=== PATIENT | female | born 1960 | race Caucasian/White ===

== ENCOUNTER 2016-02-23 06:32 | Outpatient (CLI) ==
--- NOTE | 2016-02-23 09:03 | ECHO2D ---
Date of Exam: 02/23/16 Ordering Physician: MADELINE/ABIGAIL/ANATOLIY Reason for Echo: ABNORMAL EKG, ISCHEMIA, SURGICAL CLEARANCE M-Mode Normal Adult Results LV Dimensions Normal Adult Results AoV Opening excursions >1.6 >1.6 LVEDD-base- 3.5-5.8 3.5 Ao root dimensions 2.0-3.7 3.0 LVESD-base- 3.1-4.6 L. Atrium dimensions 1.9-3.8 2.7 Post. Wall thickness 0.8-1.1 0.9 IV septum (thickness) 0.7-1.2 0.8 Post. Wall excursion 0.72-1.3 NORMAL Septal motion NORMAL Systolic motion R. Ventricular cavity 1.5-2.0 NORMAL LVEF 60% 56% Paradoxical septal wall motion NORMAL 2-D : 2-D M Mode Echocardiogram was performed using apical four chamber and left parasternal long and short axis views. Mitral, tricuspid and aortic valves appear to be normal. Contractility of the left ventricle seems to be normal, so is the cavity size. Left atrial cavity size and aortic root appear to be normal. There is no pericardial effusion. There is no thrombus noted in the left ventricular or left aortic cavity. MITRAL VALVE PROLAPSE NOTED ON LEFT PARASTERNAL LONG AXIS AND APICAL FOUR CHAMBER VIEW M-MODE: MV: MITRAL VALVE PROLAPSE, LATE SYSTOLIC AV: NORMAL TV: NORMAL PV: NORMAL CHAMBER SIZE: NORMAL WALL MOTION: NORMAL PERICARDIUM: NORMAL INTERPRETATION: 1. MITRAL VALVE PROLAPSE, LATE SYSTOLIC, MAYBE TRACE MITRAL REGURGITATION 2. NORMAL LEFT VENTRICULAR CONTRACTILITY 3. NORMAL LEFT VENTRICLE SIZE, LEFT ATRIAL SIZE MTDD
== END 2016-02-23 06:33 | disposition home or self-care (01) ==
LOC: CAR 06:32
PROVIDERS: ATTEND Internal Medicine
DX: R94.31 Abnormal electrocardiogram [ECG] [EKG] (principal); I25.10 Atherosclerotic heart disease of native coronary artery without angina pectoris; Z01.810 Encounter for preprocedural cardiovascular examination

== ENCOUNTER 2016-03-20 15:00 | Outpatient (RCR) ==
--- NOTE | 2016-02-28 13:08 | RS.OPPTEV2 ---
Date of Note: 02/25/16 Visit #: 1 Date of Evaluation: 02/25/16 Payer Source: Insurance Date of Onset/Injury/Change in Status: 02/24/16 (right shoulder manipulation ) Treatment Diagnosis: Right shoulder pain, stiffness, Adhesive capsulitis, s/p manipulation History of Condition/Mechanism of Injury:: Patient reports right shoulder pain and progressive limited ROM for over a year. States she had MRI and Xray that reveal not injury in the joint. 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 Prior Level of Function.....Patient was independent with: ADL's, Self Care, Work /Vocation, Caregiving, Ambulation/Mobility, Community Integration/Access Functional Limitations: Sleep, Self Care, ADL's, Reaching, Pushing, Pulling, Lifting Current Subjective/complaints:: Patient reports right shoulder pain and soreness. She took a pain pill this morning. Reports nerve block wore off last night. She did ice the right shoulder last night. Reports difficulty getting dressed and styling her hair. Also reports sleeping has been difficult , she is unable to sleep on either side due to discomfort in the right shoulder. She hopes to return to work on Sunday. Treatment Side (optional): Right Medical History Medical History: Unremarkable Smoking Status: Former smoker Diagnostic Testing/Imaging:: Xrays and MRI were negative Hx Home Medications: pain medication (patient not sure of name), lexapro, synthroid Patient's Goals: Her goal is to regain functional AROM of the right UE. Pain Assessment - Pain Description Pain Location: right shoulder, anterior and posterior aspect of joint Pain Description: soreness, aching Current Pain Intensity: 5/10 Worst Pain Intensity: 8/10 Functional Outcome Measure UE Functional Index: 52 (52/80=35% impairment) - G Codes & Severity Modifier G Codes & Modifier: NA Source of G Code score: NA Observation - Observation Posture: Forward Head, Rounded Shoulders, Scapula Asymmetry (right scapula elevated) Handedness: Ambidextrous (writes left handed, but everything else right handed) Shoulder ROM: Left WFL's Shoulder Muscle Strength: Left WFL's - Right Shoulder ROM Comments: Passive-AAROM right shoulder: flexion 100 degrees, abduction 90 degrees, ER 55-60 degrees, IR 50 degrees. Full elbow, wrist, and hand AROM. - Right Shoulder Strength Right Shoulder Flexion: 4 Good Right Shoulder Extension: 4 Good Right Shoulder Abduction: 4 Good Right Shoulder Adduction: 4 Good Right Shoulder External Rotation: 4 Good Right Shoulder Internal Rotation: 4 Good Palpation Comments:: Patient with general soreness througout the anterior and posterior aspect of the shoulder joint. Sensation - Sensation Right Upper Extremity: Intact/Normal Left Upper Extremity: Intact/Normal - Heat/Cryotherapy Treatment: Cryotherapy (x 10 mins following ROM) Interventions - Exercise/Activities/Manual Therapy Exercises/Activities: Patient received PROM in all directions following evaluation. She demonstrated muscle guarding with initial ROM, but gradually relaxed and tolerated more ROM. Patient instructed in HEP of pendulum, P-AAROM into flexion and abduction, scapular retraction, and passive stretching into ER. Total minutes of Exercise: X 16 mins Manual Therapy: NA HOME EXERCISE PROGRAM: pendulum, P-AAROM into flexion and abduction, scapular retraction, and passive stretching into ER. - Charges Total Direct Minutes: 45 mins Total Treatment Time: 45 mins Procedures billed for this date of service:: TYRA,Ex, CP Assessment Assessment: Patient presents 1 day s/p manipulation of the right shoulder. She demonstrates limited passive and Active ROM. Demonstrates general weakness of the right shoulder girdle. She exhibits good potential to benefit from ROM and progressed strengthening to regain functional, pain-free AROM. Patient Education: Education of diagnosis, Body/Joint mechanics, Home Exercise Program, Home Safety, Activity Modification, Education of Plan of Care Rehab Potential: Good Short Term Goals Goal #1: Pt compliant and independent in basic HEP. Goal to be met by: 03/06/16 Goal #2: PROM WFL's right shoulder. Goal to be met by: 03/13/16 Goal #3: Right shoulder AROM 75% of normal range. Goal to be met by: 03/13/16 Goal #4: Right shoulder strength 4+/5 throughout. Goal to be met by: 03/13/16 Certified Art Therapist Goals Goal #1: Pt knows to cont. HEP to maintain level of function at discharge. Goal to be met by: 03/29/16 Goal #2: Right shoulder AROM WFL's to allow pt to perform all home/work activities. Goal to be met by: 03/29/16 Goal #3: Score on UE functional index improved to <20% impairment. Goal to be met by: 03/29/16 Goal #4: Pt able to perform all ADL's and selfcare without right shoulder pain. Goal to be met by: 03/29/16 Plan - Treatment to be Provided Procedures: Therapeutic Exercises, Therapeutic Activity, Manual Therapy, Patient Education Modalities: Cryotherapy, Hot Packs - Treatment Plan Frequency: 3 X week Duration: 4 weeks ORDER # VISITS AND/OR THROUGH DATE: 03/29/16 - Treatment Code (1) Stiffness of right shoulder joint Comments: M25.611 (2) Shoulder pain Qualifiers: Laterality: right Chronicity: acute Qualified Description: Acute pain of right shoulder Qualifier Code(s): (M25.511) Pain in right shoulder (3) Adhesive capsulitis Qualifiers: Laterality: right Qualified Description: Adhesive capsulitis of right shoulder Qualifier Code(s): (M75.01) Adhesive capsulitis of right shoulder
--- NOTE | 2016-02-28 13:15 | RS.OPPTDN ---
Subjective Date of Note: 02/28/16 Visit #: 2 Date of Evaluation: 02/25/16 Payer Source: Insurance Treatment Diagnosis: Right shoulder pain, stiffness, Adhesive capsulitis, s/p manipulation Current Subjective/complaints:: Patient states she was sore after first session. States she has been performing exercises at home. States she cut her son's hair this weekend, and states she did OK. She goes back to her physician this Sunday and also plans to work a little. Reports most soreness is in the posterior aspect of the shoulder. Pain Assessment - Pain Description Pain Location: right shoulder, anterior and posterior aspect of joint Pain Description: soreness, aching Current Pain Intensity: 4/10 - Heat/Cryotherapy Treatment: Cryotherapy (X 10 mins following ROM) Interventions - Exercise/Activities/Manual Therapy Exercises/Activities: Pt receives PROM in all directions X 18 mins. Demonstrates less guarding with ROM today compared to first session. Performed contrac/relax technique to assist with stretching into ER. Reviewed HEP and discussed adding horizontal adduction to stretch the posterior capsule. Manual Therapy: NA HOME EXERCISE PROGRAM: pendulum, P-AAROM into flexion, abduction, horizontal adduction, scapular retraction, and passive stretching into ER. - Objective Findings Observations,measurements,etc.: PROM today: flexion 125-130 degrees, scaption 115 degrees, ER 65 degrees. - Charges Total Direct Minutes: 18 mins Total Treatment Time: 28 mins Procedures billed for this date of service:: EX, CP Assessment: Patient demonstrates less guarding today with ROM. Appears to be compliant with HEP. Main area of soreness is in the posterior aspect of the shoulder with stretching. Patient Education: Education of diagnosis, Body/Joint mechanics, Home Exercise Program, Home Safety, Activity Modification, Education of Plan of Care Patient demonstrates compliance with HEP?: Yes Short Term Goals Goal #1: Pt compliant and independent in basic HEP. Goal to be met by: 03/06/16 Progress towards Goal:: Progressing Goal #2: PROM WFL's right shoulder. Goal to be met by: 03/13/16 Progress towards Goal:: Progressing Goal #3: Right shoulder AROM 75% of normal range. Goal to be met by: 03/13/16 Goal #4: Right shoulder strength 4+/5 throughout. Goal to be met by: 03/13/16 Longterm Goals Goal #1: Pt knows to cont. HEP to maintain level of function at discharge. Goal to be met by: 03/29/16 Goal #2: Right shoulder AROM WFL's to allow pt to perform all home/work activities. Goal to be met by: 03/29/16 Goal #3: Score on UE functional index improved to <20% impairment. Goal to be met by: 03/29/16 Goal #4: Pt able to perform all ADL's and selfcare without right shoulder pain. Goal to be met by: 03/29/16 Plan PLAN OF CARE EXPIRES ON:: 03/29/16 ORDER # VISITS AND/OR THROUGH DATE: 03/29/16 PLAN: Progress Exercises
--- NOTE | 2016-02-29 09:54 | RS.OPPTDN ---
Subjective Date of Note: 02/29/16 Visit #: 3 Date of Evaluation: 02/25/16 Payer Source: Insurance Treatment Diagnosis: Right shoulder pain, stiffness, Adhesive capsulitis, s/p manipulation Current Subjective/complaints:: Patient feels she is improving,has more Rshoulder motion with less pain. Pain Assessment - Pain Description Pain Location: right shoulder, anterior and posterior aspect of joint Pain Description: Aching Pain Description: soreness, aching Current Pain Intensity: not rated - Heat/Cryotherapy Treatment: Cryotherapy (15 mins. after exercises) Interventions - Exercise/Activities/Manual Therapy Exercises/Activities: Pt receives PROM in all directions X 20 mins. PROM, contract-relax for ER.ER passively to 45 degrees today.Scapular ROM and postural awareness exercises at end of session. Total minutes of Exercise: 20 Manual Therapy: NA Total minutes of Manual Therapy: 0 HOME EXERCISE PROGRAM: pendulum, P-AAROM into flexion, abduction, horizontal adduction, scapular retraction, and passive stretching into ER. - Charges Total Direct Minutes: 20 Total Treatment Time: 35 Procedures billed for this date of service:: cp,ex Assessment: Patient has improved ability to reach behind her and to the back of her head today.She has good return demo of exercises. Patient Education: Body/Joint mechanics, Home Exercise Program Patient demonstrates compliance with HEP?: Yes Short Term Goals Goal #1: Pt compliant and independent in basic HEP. Goal to be met by: 03/06/16 Progress towards Goal:: Progressing Goal #2: PROM WFL's right shoulder. Goal to be met by: 03/13/16 Progress towards Goal:: Progressing Goal #3: Right shoulder AROM 75% of normal range. Goal to be met by: 03/13/16 Goal #4: Right shoulder strength 4+/5 throughout. Goal to be met by: 03/13/16 Hypoid Gear Generator Goals Goal #1: Pt knows to cont. HEP to maintain level of function at discharge. Goal to be met by: 03/29/16 Goal #2: Right shoulder AROM WFL's to allow pt to perform all home/work activities. Goal to be met by: 03/29/16 Goal #3: Score on UE functional index improved to <20% impairment. Goal to be met by: 03/29/16 Goal #4: Pt able to perform all ADL's and selfcare without right shoulder pain. Goal to be met by: 03/29/16 Plan PLAN OF CARE EXPIRES ON:: 03/29/16 ORDER # VISITS AND/OR THROUGH DATE: 03/29/16 PLAN: Continue Plan of Care
--- NOTE | 2016-03-02 11:52 | RS.OPPTDN ---
Subjective Date of Note: 03/02/16 Visit #: 4 Date of Evaluation: 02/25/16 Payer Source: Insurance Treatment Diagnosis: Right shoulder pain, stiffness, Adhesive capsulitis, s/p manipulation Current Subjective/complaints:: Reports working till around & PM last night,and the R shoulder pain was elevated,and is more sore this AM. Pain Assessment - Pain Description Pain Location: right shoulder, anterior and posterior aspect of joint Pain Description: Dull, Aching Pain Description: soreness, aching Current Pain Intensity: 5-6/10 - Heat/Cryotherapy Treatment: Cryotherapy (10 mins. after exercises.) Interventions - Exercise/Activities/Manual Therapy Exercises/Activities: 25 mins. total of PROM,progressed to AAROM,contract-relax for ER. in supine with R UE in scapular plane.Insitting ,patient did scapular pro/retraction,shoulder shrugs ,shoulder circles.Ended session with standing shoulder scaption to approx. 150 degrees. Total minutes of Exercise: 25 Manual Therapy: NA Total minutes of Manual Therapy: 0 HOME EXERCISE PROGRAM: pendulum, P-AAROM into flexion, abduction, horizontal adduction, scapular retraction, and passive stretching into ER. - Charges Total Direct Minutes: 25 Total Treatment Time: 35 Procedures billed for this date of service:: cp,ex 2 Assessment: Patient progressing ,has soft end feel for all motions ,except , moderately firm end feel for ER.Her active motion is functional for elevation, abduction ,and IR.Her ER allows for her to reach back behind her at pocket level ,but discomfort reported if she attempts to move her R hand up higher on her back.She is very attentive to HEP,joint protection. Patient Education: Education of diagnosis, Body/Joint mechanics, Home Exercise Program, Home Safety, Activity Modification, Education of Plan of Care Patient demonstrates compliance with HEP?: Yes Short Term Goals Goal #1: Pt compliant and independent in basic HEP. Goal to be met by: 03/06/16 Progress towards Goal:: Progressing Goal #2: PROM WFL's right shoulder. Goal to be met by: 03/13/16 Progress towards Goal:: Progressing Goal #3: Right shoulder AROM 75% of normal range. Goal to be met by: 03/13/16 Progress towards Goal:: Progressing Goal #4: Right shoulder strength 4+/5 throughout. Goal to be met by: 03/13/16 [facility] Goals Goal #1: Pt knows to cont. HEP to maintain level of function at discharge. Goal to be met by: 03/29/16 Progress towards goal: Progressing Goal #2: Right shoulder AROM WFL's to allow pt to perform all home/work activities. Goal to be met by: 03/29/16 Goal #3: Score on UE functional index improved to <20% impairment. Goal to be met by: 03/29/16 Goal #4: Pt able to perform all ADL's and selfcare without right shoulder pain. Goal to be met by: 03/29/16 Plan PLAN OF CARE EXPIRES ON:: 03/29/16 ORDER # VISITS AND/OR THROUGH DATE: 03/29/16 PLAN: Continue Plan of Care
--- NOTE | 2016-03-06 10:11 | RS.OPPTDN ---
Subjective Date of Note: 03/06/16 Visit #: 5 Date of Evaluation: 02/25/16 Payer Source: Insurance Treatment Diagnosis: Right shoulder pain, stiffness, Adhesive capsulitis, s/p manipulation Current Subjective/complaints:: Reports the R shoulder has been aching more over the weekend. Pain Assessment - Pain Description Pain Location: right shoulder, anterior and posterior aspect of joint Pain Description: Tightness, Dull, Aching Pain Description: soreness, aching Current Pain Intensity: not rated - Heat/Cryotherapy Treatment: Hot Pack (20 ins. prior to manual therapy) Interventions - Exercise/Activities/Manual Therapy Exercises/Activities: NA Total minutes of Exercise: 0 Manual Therapy: 25 mins. deep tissue mobs. to R shoulder/UT/scapula,trigger point techniques along the medial border of scapula and muscle belly of the upper trap. Total minutes of Manual Therapy: 25 HOME EXERCISE PROGRAM: pendulum, P-AAROM into flexion, abduction, horizontal adduction, scapular retraction, and passive stretching into ER. - Charges Total Direct Minutes: 25 Total Treatment Time: 45 Procedures billed for this date of service:: hp,manual therapy Assessment: Patient has moderate increased tone in the R shoulder complex with trigger points in the R upper trap and medial border of the scapula.She has good erythemic response during the manual therapy.She reports relief after sesion today.Instructed to use ice or moist heat later today to decrease soreness.She has good understanding of HEP for the R shoulder flexibility. Patient Education: Body/Joint mechanics, Home Exercise Program, Education of Plan of Care Patient demonstrates compliance with HEP?: Yes Short Term Goals Goal #1: Pt compliant and independent in basic HEP. Goal to be met by: 03/06/16 Progress towards Goal:: Progressing Goal #2: PROM WFL's right shoulder. Goal to be met by: 03/13/16 Progress towards Goal:: Progressing Goal #3: Right shoulder AROM 75% of normal range. Goal to be met by: 03/13/16 Progress towards Goal:: Progressing Goal #4: Right shoulder strength 4+/5 throughout. Goal to be met by: 03/13/16 Cytology Technologist Goals Goal #1: Pt knows to cont. HEP to maintain level of function at discharge. Goal to be met by: 03/29/16 Progress towards goal: Progressing Goal #2: Right shoulder AROM WFL's to allow pt to perform all home/work activities. Goal to be met by: 03/29/16 Goal #3: Score on UE functional index improved to <20% impairment. Goal to be met by: 03/29/16 Goal #4: Pt able to perform all ADL's and selfcare without right shoulder pain. Goal to be met by: 03/29/16 Plan PLAN OF CARE EXPIRES ON:: 03/29/16 ORDER # VISITS AND/OR THROUGH DATE: 03/29/16 PLAN: Continue Plan of Care
--- NOTE | 2016-03-07 10:01 | RS.OPPTDN ---
Subjective Date of Note: 03/07/16 Visit #: 6 Date of Evaluation: 02/25/16 Payer Source: Insurance Treatment Diagnosis: Right shoulder pain, stiffness, Adhesive capsulitis, s/p manipulation Current Subjective/complaints:: Reports increased muscle soreness after yesterday's session ,but does feel like the R shoulder motion is improved. Pain Assessment - Pain Description Pain Location: right shoulder, anterior and posterior aspect of joint Pain Description: Dull, Aching Pain Description: soreness, aching Current Pain Intensity: 4/10 - Heat/Cryotherapy Treatment: Hot Pack (15 mins. prior to exercises) Interventions - Exercise/Activities/Manual Therapy Exercises/Activities: 25 mins. total of PROM ,progressed to AAROM ,then AROM with 1# for flexion ,scaption,abduction.Ended session with instruction for postural pullbacks with yellow theraband at 3 different levels. Total minutes of Exercise: 25 Manual Therapy: N/A Total minutes of Manual Therapy: 0 HOME EXERCISE PROGRAM: pendulum, P-AAROM into flexion, abduction, horizontal adduction, scapular retraction, and passive stretching into ER. - Charges Total Direct Minutes: 25 Total Treatment Time: 40 Procedures billed for this date of service:: hp,ex 2 Assessment: Patient tolerates strengthening exercises well,but continues to have limited ER ,and report of pain in the triceps region with this motion.She is attentive and highly motivated to improve. Patient Education: Education of diagnosis, Body/Joint mechanics, Home Exercise Program, Home Safety, Activity Modification, Education of Plan of Care Patient demonstrates compliance with HEP?: Yes Short Term Goals Goal #1: Pt compliant and independent in basic HEP. Goal to be met by: 03/06/16 Progress towards Goal:: Progressing Goal #2: PROM WFL's right shoulder. Goal to be met by: 03/13/16 Progress towards Goal:: Progressing Goal #3: Right shoulder AROM 75% of normal range. Goal to be met by: 03/13/16 Progress towards Goal:: Progressing Goal #4: Right shoulder strength 4+/5 throughout. Goal to be met by: 03/13/16 Progress towards Goal:: Progressing Group Contract Analyst Goals Goal #1: Pt knows to cont. HEP to maintain level of function at discharge. Goal to be met by: 03/29/16 Progress towards goal: Progressing Goal #2: Right shoulder AROM WFL's to allow pt to perform all home/work activities. Goal to be met by: 03/29/16 Progress towards goal: Progressing Goal #3: Score on UE functional index improved to <20% impairment. Goal to be met by: 03/29/16 Goal #4: Pt able to perform all ADL's and selfcare without right shoulder pain. Goal to be met by: 03/29/16 Plan PLAN OF CARE EXPIRES ON:: 03/29/16 ORDER # VISITS AND/OR THROUGH DATE: 03/29/16 PLAN: Progress Exercises
--- NOTE | 2016-03-09 10:31 | RS.OPPTDN ---
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 Pain Assessment - Pain Description Pain Location: right shoulder, anterior and posterior aspect of joint Pain Description: Dull, Aching Pain Description: soreness, aching Current Pain Intensity: not rated today. - Heat/Cryotherapy Treatment: Hot Pack (15 mins. to R shoulder prior to exercises) Interventions - Exercise/Activities/Manual Therapy Exercises/Activities: 35 mins. total of PROM ,progressed to AAROM ,then AROM with 3# for flexion ,scaption,abduction,progressed to using 2 # dumbbell for same motions.Standing exercises of reaching behind and up her back in pain free ROM,and reaching up to the back of her head.3/10-15 reps each wand exercise. Total minutes of Exercise: 35 Manual Therapy: N/A Total minutes of Manual Therapy: 0 HOME EXERCISE PROGRAM: pendulum, P-AAROM into flexion, abduction, horizontal adduction, scapular retraction, and passive stretching into ER. - Charges Total Direct Minutes: 35 Total Treatment Time: 50 Procedures billed for this date of service:: hp,ex 2 Assessment: Patient less guarded motion today,along with increased passive motion.Her ER has softer end feel today.She is compliant to recommendations for HEP and joint protection. Patient Education: Education of diagnosis, Body/Joint mechanics, Home Exercise Program, Home Safety, Activity Modification, Education of Plan of Care Patient demonstrates compliance with HEP?: Yes Short Term Goals Goal #1: Pt compliant and independent in basic HEP. Goal to be met by: 03/06/16 Progress towards Goal:: Progressing Goal #2: PROM WFL's right shoulder. Goal to be met by: 03/13/16 Progress towards Goal:: Progressing Goal #3: Right shoulder AROM 75% of normal range. Goal to be met by: 03/13/16 Progress towards Goal:: Progressing Goal #4: Right shoulder strength 4+/5 throughout. Goal to be met by: 03/13/16 Progress towards Goal:: Progressing Shelter Goals Goal #1: Pt knows to cont. HEP to maintain level of function at discharge. Goal to be met by: 03/29/16 Progress towards goal: Progressing Goal #2: Right shoulder AROM WFL's to allow pt to perform all home/work activities. Goal to be met by: 03/29/16 Progress towards goal: Progressing Goal #3: Score on UE functional index improved to <20% impairment. Goal to be met by: 03/29/16 Goal #4: Pt able to perform all ADL's and selfcare without right shoulder pain. Goal to be met by: 03/29/16 Plan PLAN OF CARE EXPIRES ON:: 03/29/16 ORDER # VISITS AND/OR THROUGH DATE: 03/29/16 PLAN: Progress Exercises
--- NOTE | 2016-03-13 10:11 | RS.OPPTDN ---
Subjective Date of Note: 03/13/16 Visit #: 8 Date of Evaluation: 02/25/16 Payer Source: Insurance Treatment Diagnosis: Right shoulder pain, stiffness, Adhesive capsulitis, s/p manipulation Current Subjective/complaints:: Reports the R shoulder feels better,tolerated housework better yesterday. Pain Assessment - Pain Description Pain Location: right shoulder, anterior and posterior aspect of joint Pain Description: Dull, Aching Pain Description: soreness, aching Current Pain Intensity: 1-2 at rest - Heat/Cryotherapy Treatment: Hot Pack (20 mins. prior to exercises) Interventions - Exercise/Activities/Manual Therapy Exercises/Activities: 25 mins. total of AROM for postural pullbacks,shoulder IR/ ER with yellow t-band,scapular protraction(boxers punch) using 10# on [employer] system.Ended session with contract-relax method to increase the ER. Total minutes of Exercise: 25 Manual Therapy: N/A Total minutes of Manual Therapy: 0 HOME EXERCISE PROGRAM: pendulum, P-AAROM into flexion, abduction, horizontal adduction, scapular retraction, and passive stretching into ER. - Charges Total Direct Minutes: 25 Total Treatment Time: 45 Procedures billed for this date of service:: hp,ex 2 Assessment: Patient progressing ,tolerating ADL's with less difficulty.Her motion is functional,continues to have increased passive ER,with softer end feel today. Patient Education: Body/Joint mechanics, Home Exercise Program, Activity Modification, Education of Plan of Care Patient demonstrates compliance with HEP?: Yes Short Term Goals Goal #1: Pt compliant and independent in basic HEP. Goal to be met by: 03/06/16 Progress towards Goal:: Partially Met Goal #2: PROM WFL's right shoulder. Goal to be met by: 03/13/16 Progress towards Goal:: Met Goal #3: Right shoulder AROM 75% of normal range. Goal to be met by: 03/13/16 Progress towards Goal:: Partially Met Goal #4: Right shoulder strength 4+/5 throughout. 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 HEP to maintain level of function at discharge. Goal to be met by: 03/29/16 Progress towards goal: Progressing Goal #2: Right shoulder AROM WFL's to allow pt to perform all home/work activities. Goal to be met by: 03/29/16 Progress towards goal: Progressing Goal #3: Score on UE functional index improved to <20% impairment. Goal to be met by: 03/29/16 Goal #4: Pt able to perform all ADL's and selfcare without right shoulder pain. Goal to be met by: 03/29/16 Progress towards goal: Progressing Plan PLAN OF CARE EXPIRES ON:: 03/29/16 ORDER # VISITS AND/OR THROUGH DATE: 03/29/16 PLAN: Progress Exercises
--- NOTE | 2016-03-16 10:00 | RS.OPPTDN ---
Subjective Date of Note: 03/16/16 Visit #: 9 Date of Evaluation: 02/25/16 Payer Source: Insurance Treatment Diagnosis: Right shoulder pain, stiffness, Adhesive capsulitis, s/p manipulation Current Subjective/complaints:: Pleased with her progress. Pain Assessment - Pain Description Pain Location: right shoulder, anterior and posterior aspect of joint Pain Description: Dull, Aching Pain Description: soreness, aching Current Pain Intensity: not rated today - Heat/Cryotherapy Treatment: Hot Pack (20 mins. to R shoulder prior to exercises) Interventions - Exercise/Activities/Manual Therapy Exercises/Activities: 30 mins. total of AROM for postural pullbacks,shoulder IR/ ER with red t-band,3/15.AROM with 1# dumbbell for shoulder flexion,scaption, abduction in standing. Total minutes of Exercise: 30 Manual Therapy: N/A Total minutes of Manual Therapy: 0 HOME EXERCISE PROGRAM: pendulum, P-AAROM into flexion, abduction, horizontal adduction, scapular retraction, and passive stretching into ER. - Charges Total Direct Minutes: 30 Total Treatment Time: 50 Procedures billed for this date of service:: hp,ex 2 Assessment: Progressing well in all areas,increased strenght in the R shoulder, AROM is functional with less pain reported.She is highly motivated to improve. Patient Education: Body/Joint mechanics, Education of Plan of Care Patient demonstrates compliance with HEP?: Yes Short Term Goals Goal #1: Pt compliant and independent in basic HEP. Goal to be met by: 03/06/16 Progress towards Goal:: Met Goal #2: PROM WFL's right shoulder. Goal to be met by: 03/13/16 Progress towards Goal:: Met Goal #3: Right shoulder AROM 75% of normal range. Goal to be met by: 03/13/16 Progress towards Goal:: Partially Met Goal #4: Right shoulder strength 4+/5 throughout. 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 HEP to maintain level of function at discharge. Goal to be met by: 03/29/16 Progress towards goal: Partially Met Goal #2: Right shoulder AROM WFL's to allow pt to perform all home/work activities. Goal to be met by: 03/29/16 Progress towards goal: Partially Met Goal #3: Score on UE functional index improved to <20% impairment. Goal to be met by: 03/29/16 Goal #4: Pt able to perform all ADL's and selfcare without right shoulder pain. Goal to be met by: 03/29/16 Progress towards goal: Progressing Plan PLAN OF CARE EXPIRES ON:: 03/29/16 ORDER # VISITS AND/OR THROUGH DATE: 03/29/16 PLAN: Progress Exercises
--- NOTE | 2016-03-20 16:33 | RS.OPPTDN ---
Subjective Date of Note: 03/20/16 Visit #: 10 Date of Evaluation: 02/25/16 Payer Source: Insurance Treatment Diagnosis: Right shoulder pain, stiffness, Adhesive capsulitis, s/p manipulation Current Subjective/complaints:: Reports being to lift dishes and household items into cabinets with less difficulty as the R shoulder feels stronegr and less tight. Pain Assessment - Pain Description Pain Location: right shoulder, anterior and posterior aspect of joint Pain Description: Dull, Aching Pain Description: soreness, aching Current Pain Intensity: very minimal Interventions - Exercise/Activities/Manual Therapy Exercises/Activities: 30 mins. total of AROM for postural pullbacks,shoulder IR/ ER with red t-band,3/15.Boxers punch motion also with red t-band.Standing shoulder extension bilaterally using 3# wand x 15 reps. Total minutes of Exercise: 30 Manual Therapy: N/A Total minutes of Manual Therapy: 0 HOME EXERCISE PROGRAM: pendulum, P-AAROM into flexion, abduction, horizontal adduction, scapular retraction, and passive stretching into ER. - Charges Total Direct Minutes: 30 Total Treatment Time: 50 Procedures billed for this date of service:: hp,ex 2 Assessment: Progressing well in all areas,ahs increased strenght and motion in the R shoulder.She has improved passive stretch,especially with behind her back motion today.She is motivated and compliant to recommendations of the therapy staff. Patient Education: Education of diagnosis, Body/Joint mechanics, Home Exercise Program, Home Safety, Activity Modification, Education of Plan of Care Patient demonstrates compliance with HEP?: Yes Short Term Goals Goal #1: Pt compliant and independent in basic HEP. Goal to be met by: 03/06/16 Progress towards Goal:: Met Goal #2: PROM WFL's right shoulder. Goal to be met by: 03/13/16 Progress towards Goal:: Met Goal #3: Right shoulder AROM 75% of normal range. Goal to be met by: 03/13/16 Progress towards Goal:: Partially Met Goal #4: Right shoulder strength 4+/5 throughout. Goal to be met by: 03/13/16 Progress towards Goal:: Progressing Assisted Goals Goal #1: Pt knows to cont. HEP to maintain level of function at discharge. Goal to be met by: 03/29/16 Progress towards goal: Partially Met Goal #2: Right shoulder AROM WFL's to allow pt to perform all home/work activities. Goal to be met by: 03/29/16 Progress towards goal: Partially Met Goal #3: Score on UE functional index improved to <20% impairment. Goal to be met by: 03/29/16 Goal #4: Pt able to perform all ADL's and selfcare without right shoulder pain. Goal to be met by: 03/29/16 Progress towards goal: Partially Met Plan PLAN OF CARE EXPIRES ON:: 03/29/16 ORDER # VISITS AND/OR THROUGH DATE: 03/29/16 PLAN: Continue Plan of Care
== END 2016-03-21 ==
PROVIDERS: ATTEND Orthopaedic Surgery
DX: M75.01 Adhesive capsulitis of right shoulder (principal)

== ENCOUNTER 2016-03-23 09:35 | Outpatient (RCR) ==
--- NOTE | 2016-03-23 10:14 | RS.OPPTDC ---
Date of Discharge: 03/23/16 Date of Evaluation: 02/25/16 Number of Visits: 11 Treatment Diagnosis: Right shoulder pain, stiffness, Adhesive capsulitis, s/p manipulation Current Level of Function: Independent in community and ADL's with minimal soreness in the R shoulder. Current Complaints/Gains: Pleased with her progress, Pain Assessment - Pain Description Pain Location: right shoulder, anterior and posterior aspect of joint Pain Description: soreness, aching Current Pain Intensity: very minimal Functional Outcome Measure UE Functional Index: 76 - G Codes & Severity Modifier G Codes & Modifier: NA Source of G Code score: NA Observation - Observation Posture: Normal General Range of Motion: WNL Muscle Strength: 5-/5 - Heat/Cryotherapy Treatment: Hot Pack (20 mins. prior to exercises) Interventions - Exercise/Activities/Manual Therapy Exercises/Activities: 25 mins. total of AROM for postural pullbacks,shoulder IR/ ER with red t-band,3/15.Boxers punch motion also with red t-band..Doorway stretches for pecs./anterior shoulder. Total minutes of Exercise: 25 Manual Therapy: N/A Total minutes of Manual Therapy: 0 HOME EXERCISE PROGRAM: pendulum, P-AAROM into flexion, abduction, horizontal adduction, scapular retraction, and passive stretching into ER. - Charges Total Direct Minutes: 25 Total Treatment Time: 45 Procedures billed for this date of service:: vanessa,ex 2 Assessment Assessment: Progressed well in all areas,met all rehab goals.Her ROM is now WNL, good(-) strength,with good understanding of exercises and pain control if necessary.She is aware of D/C plan today. Patient Education: Education of diagnosis, Body/Joint mechanics, Home Exercise Program, Home Safety, Activity Modification, Education of Plan of Care Rehab Potential: Good Short Term Goals Goal #1: Pt compliant and independent in basic HEP. Goal to be met by: 03/06/16 Progress towards Goal:: Met Goal #2: PROM WFL's right shoulder. Goal to be met by: 03/13/16 Progress towards Goal:: Met Goal #3: Right shoulder AROM 75% of normal range. Goal to be met by: 03/13/16 Progress towards Goal:: Met Goal #4: Right shoulder strength 4+/5 throughout. Goal to be met by: 03/13/16 Progress towards Goal:: Progressing Long-Term Goals Goal #1: Pt knows to cont. HEP to maintain level of function at discharge. Goal to be met by: 03/29/16 Progress towards goal: Met Goal #2: Right shoulder AROM WFL's to allow pt to perform all home/work activities. Goal to be met by: 03/29/16 Progress towards goal: Met Goal #3: Score on UE functional index improved to <20% impairment. Goal to be met by: 03/29/16 (5% impaired) Progress towards goal: Met Goal #4: Pt able to perform all ADL's and selfcare without right shoulder pain. Goal to be met by: 03/29/16 (fatigue,soreness only) Progress towards goal: Met Plan Reason for Discharge:: All Goals Met
== END 2016-04-18 ==
PROVIDERS: ATTEND Orthopaedic Surgery
DX: M75.01 Adhesive capsulitis of right shoulder (principal)

== ENCOUNTER 2017-07-30 11:00 | Outpatient (CLI) ==
--- NOTE | 2017-07-30 12:32 | DI ---
EXAM: Radiographs, left knee HISTORY: Left knee pain. COMPARISON: None available. TECHNIQUE: Three-view. FINDINGS: Bone mineralization is decreased. There is no fracture or dislocation. The joint spaces are maintained. No focal soft tissue abnormality is seen. IMPRESSION: 1. No acute abnormality of the left knee. 2. Osteopenia.
--- NOTE | 2017-07-30 12:33 | DI ---
EXAM: Radiographs, right knee HISTORY: Right knee pain. COMPARISON: 08/09/2015. TECHNIQUE: Three views. FINDINGS: Bone mineralization is decreased. There is no fracture or dislocation. The joint spaces are maintained. No focal soft tissue abnormality is seen. Since the prior study, there has been no s ignificant interval change. IMPRESSION: 1. No acute abnormality of the right knee. 2. Osteopenia.
== END 2017-07-30 11:01 | disposition home or self-care (01) ==
LOC: RAD 11:00
PROVIDERS: ATTEND Family Medicine
DX: M25.562 Pain in left knee (principal); M25.561 Pain in right knee; M19.90 Unspecified osteoarthritis, unspecified site

== ENCOUNTER 2017-11-05 09:23 | Day surgery (SDC) ==
[2017-11-05] MEDS ORDERED: LIDOCAINE 1% 20 ML MDV ID STA (09:55)
[2017-11-05 10:00] VITALS: TEMP 98.4
[2017-11-05] MEDS ORDERED: VERSED ONE (11:20)
[2017-11-05] MEDS ORDERED: DIPRIVAN 20 ML VIAL IVP ONE (11:20)
[2017-11-05 13:48] VITALS: BP 121/67
--- NOTE | 2017-11-06 08:39 | OP ---
PROCEDURE: COLONOSCOPY TO THE CECUM WITH SNARE POLYPECTOMY. ENDOSCOPIST: Jackson SEO M.D. INDICATION: RECTAL BLEEDING INSTRUMENT: [id number]. MEDICATION: PER ANESTHESIA. PROCEDURE: The patient was positioned for colonoscopy. The digital rectal exam was negative. The colonoscope was inserted through the anus and advanced to the cecum. The cecum was identified using the ileocecal valve and the appendiceal orifice as landmarks. The scope was slowly withdrawn through an adequately prepped colon. [place] Bowel Prep score 2+2+3=7. Scattered diverticuli in the left colon. In the rectum a 5mm polyp removed using snare cautery. Small hemorrhoids are noted on retroflex exam. No other abnormalities were seen. The patient tolerated the procedure well without immediate complication. Withdraw time 7 minutes and 55 seconds. PLAN: 1. Repeat colonoscopy in 5 years after review of pathology. CC: Dr. Cortez SHI
== END 2017-11-05 12:15 | disposition home or self-care (01) ==
LOC: SURG 09:23
PROVIDERS: ATTEND Internal Medicine Gastroenterology
DX: K62.5 Hemorrhage of anus and rectum (principal); D12.8 Benign neoplasm of rectum